=== PATIENT | male | born 1960 | race Caucasian/White ===

== ENCOUNTER 2016-07-12 17:34 | Emergency (ER) | payer MEDICARE, MEDICAID | END 2016-07-12 22:48 | disposition home or self-care (01) | LOC: D.ER 17:34 | DX: S49.91XA Unspecified injury of right shoulder and upper arm, initial encounter (principal); X58.XXXA Exposure to other specified factors, initial encounter; Y93.89 Activity, other specified; Y92.019 Unspecified place in single-family (private) house as the place of occurrence of the external cause; F17.200 Nicotine dependence, unspecified, uncomplicated; E11.9 Type 2 diabetes mellitus without complications; I10 Essential (primary) hypertension ==

== ENCOUNTER 2018-05-07 11:39 | Emergency (ER) | payer MEDICARE, MEDICAID ==
[~2018-05-07] VITALS: Ht 174 cm; Wt 99.1 kg
[2018-05-07 11:43] VITALS: BP 126/79; Ht 174 cm; Wt 99.1 kg
[2018-05-07] MEDS ORDERED: FENOFIBRATE160 MG PO (11:45)
[2018-05-07] MEDS ORDERED: ZESTORETIC 20-1 EACH PO (11:46)
[2018-05-07] MEDS ORDERED: ZETIA10 MG PO (11:46)
[2018-05-07] MEDS ORDERED: NORCO 7.5/325 T1 TA1 PO (11:46)
[2018-05-07] MEDS ORDERED: ZANAFLEX4 MG PO (11:46)
== END 2018-05-07 15:31 | disposition home or self-care (01) ==
LOC: D.ER 11:39
DX: M54.2 Cervicalgia (principal); I10 Essential (primary) hypertension; F17.200 Nicotine dependence, unspecified, uncomplicated